=== PATIENT | female | born 1955 | race Caucasian/White ===

== ENCOUNTER 2017-04-14 20:03 | Emergency (ER) | payer OTHER ==
[~2017-04-14] VITALS: Ht 170.2 cm; Wt 86.5 kg
[~2017-04-14 20:03] MED LIST: COQ150CA PO; DICL75 PO; LEVO.1 PO; LIVA1TAB PO; NITR.4 SL; OMEGCAP21 PO; PLAV75TA PO; ST JTAB PO; TRAM50 PO; TURM450C PO; VITA5000 PO
[2017-04-14 20:10] VITALS: BP 168/84; PULSE 75; RESP 18; TEMP 98.9; O2SAT 99
[2017-04-14] MEDS ORDERED: TETANUS/DIPHTHERIA TOXOID ADULT 0.5 ML VIAL IM ONE (20:30)
[2017-04-14] MEDS ORDERED: LIDOCAINE 2%/EPINEPHrine 1:100,000 50ML MDV NERV BLOCK ONE (20:30)
--- NOTE | 2017-04-14 20:30 | PD ---
HPI Chief Complaint: Laceration/Skin Injury Time Seen by Provider: 20:19 Travel History International Travel<30 days: No Contact w/Intl Traveler<30days: No Traveled to known affect area: No History of Present Illness HPI 61-year-old female presents the emergency Department with injury to the upper middle scalp. Patient states she was in the yard when her next-door neighbor threw a large tree branch over his fence landing directly on top of her head. Patient has large ecchymosis and bleeding from the area. She denies loss of consciousness. She complains of some mild jaw tightness and pain at the contusion site itself. There is large "goose egg" present at the contusion site. There is a small amount of weeping blood at time of exam. Patient denies neck pain. She is ambulatory. She denies dizziness or nausea. Patient has no other injury. Patient is on Plavix. She is allergic to sulfa, codeine, latex, and morphine. PFSH Past Medical History Hx Anticoagulant Therapy: Yes Cancer: No Cardiovascular Problems: Yes High Cholesterol: Yes Chest Pain: No Coronary Artery Disease: Yes Diabetes: No Diminished Hearing: No Endocrine: Yes Gastrointestinal Disorders: No Glaucoma: No Genitourinary: No Hepatitis: No Hiatal Hernia: No Hypertension: No Musculoskeletal: No Neurologic: No Psychiatric: No Reproductive: No Respiratory: No Integumentary: No Immunizations Current: Yes (IMANI 2013) Thyroid Disease: Yes Past Surgical History Cardiac Surgery: Yes (STENT) Hysterectomy: Yes Tonsillectomy: Yes Other Surgery: Yes ( X2 AND 1 HYSTERECTOMY; TONSILECTOMY) Social History Alcohol Use: No Tobacco Use: Yes (QUIT IN DECEMBER 2013) Substance Use: No Allergies-Medications (Allergen,Severity, Reaction): Coded Allergies: codeine (Unverified Allergy, Severe, 04/14/17) latex (Unverified Allergy, Severe, 04/14/17) morphine (Unverified Allergy, Severe, 04/14/17) Sulfa (Sulfonamide Antibiotics) (Unverified Allergy, Mild, RASH, 04/14/17) Reported Meds & Prescriptions Reported Meds & Active Scripts Active Lortab (Hydrocodone-Acetaminophen) 5-325 Mg Tab 1 Tab PO Q6H PRN Reported Turmeric (Turmeric (Curcuma Longa)) 450 Mg-50 Mg Cap 500 Mg PO DAILY Vitamin D3 (Cholecalciferol) 5,000 Unit Cap 5,000 Units PO DAILY Ozan-3 Fish Oil/Vitamin (Fish Oil-Cholecalciferol) 1,000-1,000 Mg Cap 1 Cap PO DAILY Multiple Vitamins For Women (Multivit with Calcium,Iron,Min) 1 Each Tablet 1 Tab PO DAILY Zyt60-Unjtaqk E (Coenzyme Q91-Fpmtqjr E) 1 Cap 100 Mg PO DAILY Lisinopril 10 Mg Tab 10 Mg PO HS Plavix (Clopidogrel Bisulfate) 75 Mg Tab 75 Mg PO DAILY Nitrostat SL (Nitroglycerin) 0.4 Mg Subl 0.4 Mg SL ONCE Synthroid (Levothyroxine Sodium) 100 Mcg Tab 100 Mcg PO DAILY Physical Exam Narrative GENERAL: Patient appears in mild to moderate distress. SKIN: Warm and dry. Normal color. Normal turgor. Large "goose egg" to the upper central scalp measures 10 cm x 9 cm diameter. It appears to be a small macerated type laceration centrally. It is weeping a small amount of blood currently at time of exam. HEAD: No obvious bony tenderness. EYES: Pupils equal and round. No scleral icterus. No injection or drainage. Ocular motions are normal bilaterally. ENT: No nasal bleeding or discharge. Mucous membranes pink and moist. No dental injury. Pharynx is clear. Airway is patent. NECK: Trachea midline. No bony tenderness or step-off. Range of motion is full and supple. CARDIOVASCULAR: Regular rate and rhythm. RESPIRATORY: No accessory muscle use. Clear to auscultation. Breath sounds equal bilaterally. MUSCULOSKELETAL: Extremities without clubbing, cyanosis, or edema. No obvious deformities. NEUROLOGICAL: Awake and alert. No obvious cranial nerve deficits. Motor grossly within normal limits. Five out of 5 muscle strength in the arms and legs. Normal speech. PSYCHIATRIC: Appropriate mood and affect; insight and judgment normal. Data Data Last Documented VS Vital Signs Date Time Temp Pulse Resp B/P (MAP) Pulse Ox O2 Delivery O2 Flow Rate FiO2 04/14/17 20:10 98.9 75 18 168/84 (112) 99 Orders Orders Tetanus/Diphtheria Tox Adult (Tetanus/Di (04/14/17 20:30) Ct Brain W/O Iv Contrast(Rout) (04/14/17 20:24) Ice/Cold Pack (04/14/17 20:24) Lidocai-Epi 2%-1:100,000 Inj (Xylocaine- (04/14/17 20:30) Lorazepam (Ativan) (04/14/17 21:15) Acetamin-Hydrocod 325-5 Mg ([place] 5-325 (04/14/17 21:15) Wound Care (04/14/17 21:06) MDM Medical Decision Making Medical Screen Exam Complete: Yes Emergency Medical Condition: Yes Differential Diagnosis Scalp contusion. Possible laceration of the scalp. Risk for Intracranial bleed. Need for tetanus. Narrative Course Patient appears medically stable at time of exam. CT of the head is ordered. Ice pack is applied to the injured area. CT is negative for acute fracture or intracranial bleed. Wound site is cleansed with copious amounts of hydrogen peroxide to remove clots from the hair. Wound appears to be a macerated area approximately the size of a quarter with no obvious open deep wound requiring closure. Large bulky dressing is applied to the scalp which should remain in place for the next 2 days. Patient should apply ice to the area frequently over the next several days. Patient should take it very easy over the next couple of days to allow things to heal and settled down. Patient is given Lortab 5/325 one half to one tablet every 6 hours when necessary pain #12. Recommend follow-up with her primary care physician in the next several days to ensure improvement. Head injury instructions are given to the patient and . Patient to return immediately if worsening symptoms develop as discussed. Diagnosis Primary Impression: Contusion of scalp, initial encounter Additional Impression: Scalp abrasion Qualified Codes: S00.01XA - Abrasion of scalp, initial encounter Referrals: Primary Care Physician Patient Instructions: Abrasion (ED), Concussion (ED), General Instructions, Scalp Contusion in Adults (ED) Additional Instructions: CT is negative for acute fracture or intracranial bleed. Wound site is cleansed with copious amounts of hydrogen peroxide to remove clots from the hair. Wound appears to be a macerated area approximately the size of a quarter with no obvious open deep wound requiring closure. Large bulky dressing is applied to the scalp which should remain in place for the next 2 days. Patient should apply ice to the area frequently over the next several days. Patient should take it very easy over the next couple of days to allow things to heal and settled down. Patient is given Lortab 5/325 one half to one tablet every 6 hours when necessary pain #12. Recommend follow-up with her primary care physician in the next several days to ensure improvement. Head injury instructions are given to the patient and . Patient to return immediately if worsening symptoms develop as discussed. Med/Other Pt SpecificInfo: Prescription(s) given, Wound Care Scripts Hydrocodone-Acetaminophen (Lortab) 5-325 Mg Tab 1 TAB PO Q6H Y for PAIN, #12 TAB 0 Refills Prov: Jeff Norwood MD 04/14/17 Disposition: 01 DISCHARGE HOME Condition: Stable Dago Thrasher Apr 14, 2017 20:30
[2017-04-14] MEDS ORDERED: MULT-177 PO (20:43)
[2017-04-14] MEDS ORDERED: OMEGCAP PO (20:43)
[2017-04-14] MEDS ORDERED: LEVO.1 PO (20:43)
[2017-04-14] MEDS ORDERED: TURM500C3 PO (20:43)
[2017-04-14] MEDS ORDERED: LISI10TA3 PO (20:43)
[2017-04-14] MEDS ORDERED: PLAV75TA29 PO (20:43)
[2017-04-14] MEDS ORDERED: NITR0.4S SL (20:43)
[2017-04-14] MEDS ORDERED: COEN1CAP PO (20:43)
[2017-04-14] MEDS ORDERED: CHOL5000 PO (20:43)
--- NOTE | 2017-04-14 20:59 | RADRPT ---
EXAM DATE/TIME: 04/14/2017 20:43 [facility] COMPARISON: No previous studies available for comparison. INDICATIONS : Trauma. Head laceration cranial cap. RADIATION DOSE: 55.74 CTDIvol (mGy) MEDICAL HISTORY : Cardiovascular disease. SURGICAL HISTORY : None. ENCOUNTER: Initial ACUITY: 1 day PAIN SCALE: 4/10 LOCATION: cranial TECHNIQUE: Multiple contiguous axial images were obtained of the head. Using automated exposure control and adj ustment of the mA and/or kV according to patient size, radiation dose was kept as low as reasonably a chievable to obtain optimal diagnostic quality images. DICOM format image data is available electro nically for review and comparison. FINDINGS: CEREBRUM: The ventricles are normal for age. No evidence of midline shift, mass lesion, hemorrhage or acute in farction. No extra-axial fluid collections are seen. POSTERIOR FOSSA: The cerebellum and brainstem are intact. The 4th ventricle is midline. The cerebellopontine angle i s unremarkable. EXTRACRANIAL: There is a high left parietal/frontal scalp hematoma. SKULL: The calvaria is intact. No evidence of skull fracture. CONCLUSION: High left parietal/frontal scalp hematoma. No bleed or other acute intracranial abnormality. Crescencio Chaney MD on April 14, 2017 at 20:57 Board Certified Radiologist. This report was verified electronically.
[2017-04-14] MEDS ORDERED: HYDR-3533 PO ×2 (21:15→21:31)
[2017-04-14] MEDS ORDERED: ACETAMINOPHEN/HYDROcodone 325 MG/5 MG TAB PO ONE (21:15)
[2017-04-14] MEDS ORDERED: LORazepam 0.5 MG TAB PO ONE (21:15)
== END 2017-04-14 22:16 | disposition home or self-care (01) ==
LOC: PHEFT 20:03
DX: S00.03XA Contusion of scalp, initial encounter (principal); S00.01XA Abrasion of scalp, initial encounter; W20.8XXA Other cause of strike by thrown, projected or falling object, initial encounter; Y92.007 Garden or yard of unspecified non-institutional (private) residence as the place of occurrence of the external cause; Z23 Encounter for immunization
CPT/HCPCS: 70450; 90471; 90714; 96372